=== PATIENT | male | born 1980 | race Caucasian/White ===

== ENCOUNTER 2018-08-14 21:39 | Inpatient (IN) | payer MEDICARE ==
[~2018-08-14] VITALS: Ht 188 cm; Wt 111.6 kg
[~2018-08-14 21:39] MED LIST: AMOX500 PO; ASPI325 PO; ASPI81CH PO; ASPI81EC PO; CARV25; CARV25 PO; CARV6.25 PO; CEPH500 PO; CODGUAEL PO; CYCL10 PO; DIGO.125 PO; DIPATR PO; FISH1000 PO; FURO40; FURO40 PO; HYDACE5 PO; LISI20; LISI20 PO; LISI5 PO; MULVITA PO; MULVITMIND PO; NAPR550 PO; Norco 5-325 Ta1 EACH PO; ONDA4 PO; OXYACE5T PO; PARO10 PO; PARO20 PO; PENVK500 PO; PRED10; PROM25 PO; RXHYDACE PO; RXNAPNA550 PO; RXOXYACE PO; RXPENVK250 PO; Robaxin500 MG PO; SPIR25 PO; TOCO400 PO; TRIHYD5075 PO; WARF10 PO; WARF4 PO; WARF7.5 PO; ZOLP10 PO; ZOLP5 PO
[2018-08-14 22:32] LABS: Source, Urine Clean Catch
[2018-08-14 22:35] LABS: Bilirubin, Urine Neg (Neg); Blood, Urine 1+ (Neg); Glucose Qualitative, Urine Neg (Neg); Ketones, Urine Neg (Neg); Leukocyte Esterase, Urine 1+ (Neg); Nitrite, Urine Neg (Neg); Protein, Urine 1+ (Neg); Specific Gravity, Urine 1.015 (1.003-1.022); Urobilinogen, Urine 2+ (Normal); pH, Urine 6.5 (5.0-8.0)
[2018-08-14 22:41] LABS: Appearance, Urine Clear (Clear); Color, Urine Yellow (P-Yellow)
[2018-08-14 22:42] LABS: Bacteria Rare /hpf; Red Blood Cells, Urine 0-2 /hpf (0-2); Squamous Epithelial Cells Not Seen /hpf (Few); White Blood Cells, Urine 0-2 /hpf (0-5)
[2018-08-14 22:45] LABS: U Amphetamine Screen Not Detected; U Barbituate Screen Not Detected; U Benzodiazapine Screen Not Detected; U Buprenorphine Screen Not Detected; U Cannabinoids Screen DETECTED; U Cocaine Screen Not Detected; U Methadone Screen Not Detected; U Methamphetamine Screen Not Detected; U Opiates Screen Not Detected; U Oxycodone Screen Not Detected; U Phencyclidine Screen Not Detected; U Propoxyphene Screen Not Detected
[2018-08-14 22:50] LABS: BASOPHILS ABSOLUTE AUTO 0.05 K/mm3 (0.00-0.23); BASOPHILS PERCENT AUTO 0 % (0-2); EOSINOPHILS ABSOLUTE AUTO 0.12 K/mm3 (0.00-0.68); EOSINOPHILS PERCENT AUTO 1 % (0-6); Hematocrit 45.1 % (37.0-53.0); IMMATURE GRAN ABSOLUTE AUTO 0.06 K/mm3 (0.00-0.10); IMMATURE GRAN PERCENT AUTO 1 % (0-1); LYMPHOCYTES ABSOLUTE AUTO 3.72 K/mm3 (0.84-5.20); LYMPHOCYTES PERCENT AUTO 30 % (21-46); MONOCYTES ABSOLUTE AUTO 1.11 K/mm3 (0.16-1.47); MONOCYTES PERCENT AUTO 9 % (4-13); Mean Corpuscular HGB 31.9 pg (26.0-34.0); Mean Corpuscular HGB Conc 33.3 g/dL (31.5-36.5); Mean Corpuscular Volume 96 fL (80-100); Mean Platelet Volume 11.5 fL (9.1-12.4); NEUTROPHILS ABSOLUTE AUTO 7.26 K/mm3 (1.96-9.15); NEUTROPHILS PERCENT AUTO 59 % (41-73); Platelet Count 166 K/mm3 (150-400); RDW Coefficient Variation 13.4 % (11.7-14.2); White Blood Cell Count 12.32 K/mm3 (4.00-11.30)
[2018-08-14 23:11] LABS: Alanine Aminotransfer (ALT/SGP 37 U/L (12-78); Albumin, Blood 3.5 g/dL (3.4-5.0); Alk Phos 51 U/L (50-136); Anion Gap 9 mmol/L (6-16); Aspartate Aminotrans (AST/SGOT 23 U/L (12-37); Bilirubin, Total 0.2 mg/dL (0.1-1.0); Blood Urea Nitrogen 20 mg/dL (8-24); CO2, Blood 24 mmol/L (21-32); Calcium, Blood 8.2 mg/dL (8.5-10.1); Chloride, Blood 109 mmol/L (98-108); Globulin, Blood 3.4 g/dL (2.2-4.0); Glomerular Filtration Rate >60 (60-); Glucose, Blood 86 mg/dL (70-99); Potassium, Blood 4.3 mmol/L (3.5-5.5); Salicylate 3.3 mg/dL (2.8-20.0); Sodium, Blood 142 mmol/L (136-145); Total Protein, Blood 6.9 g/dL (6.4-8.2)
[2018-08-14 23:19] LABS: Acetaminophen, Random <2.0 ug/mL (10.0-30.0); Ethanol (Alcohol), Blood, Med <3 mg/dL
[2018-08-15 03:00] LABS: C-REACTIVE PROTEIN, EXT RANGE 0.434 mg/dL (0.000-0.300)
[2018-08-15 05:49] LABS: Hematocrit 41.5 % (37.0-53.0); Hemoglobin 13.8 g/dL (13.5-17.5); Mean Corpuscular HGB 31.4 pg (26.0-34.0); Mean Corpuscular HGB Conc 33.3 g/dL (31.5-36.5); Mean Corpuscular Volume 94 fL (80-100); Mean Platelet Volume 11.4 fL (9.1-12.4); Platelet Count 141 K/mm3 (150-400); RDW Coefficient Variation 13.1 % (11.7-14.2); RDW Standard Deviation 45.7 fL (35.1-46.3); White Blood Cell Count 6.88 K/mm3 (4.00-11.30)
[2018-08-15 06:13] LABS: Alanine Aminotransfer (ALT/SGP 32 U/L (12-78); Albumin, Blood 3.3 g/dL (3.4-5.0); Albumin/Globulin Ratio 1.1 (0.8-1.8); Alk Phos 46 U/L (50-136); Anion Gap 5 mmol/L (6-16); Aspartate Aminotrans (AST/SGOT 17 U/L (12-37); Bilirubin, Total 0.4 mg/dL (0.1-1.0); Blood Urea Nitrogen 19 mg/dL (8-24); Bun/Creatinine Ratio 21.7 (12.0-20.0); CO2, Blood 28 mmol/L (21-32); Calcium, Blood 8.1 mg/dL (8.5-10.1); Chloride, Blood 109 mmol/L (98-108); Creatinine, Blood 0.87 mg/dL (0.60-1.20); Globulin, Blood 3.1 g/dL (2.2-4.0); Glomerular Filtration Rate >60 (60-); Glucose, Blood 87 mg/dL (70-99); Potassium, Blood 4.5 mmol/L (3.5-5.5); Sodium, Blood 142 mmol/L (136-145); Total Protein, Blood 6.4 g/dL (6.4-8.2)
[2018-08-15] MEDS ORDERED: KETO10 PO (11:38)
== END 2018-08-15 12:20 | disposition home or self-care (01) | DRG 556 ==
LOC: ER 21:39 → SURS 21:40 → ER 21:40 → SURS 08-15 02:23
PROVIDERS: Emergency Medicine; Internal Medicine
DX: M25.552 Pain in left hip (principal); I69.351 Hemiplegia and hemiparesis following cerebral infarction affecting right dominant side; I42.9 Cardiomyopathy, unspecified; M54.5 Low back pain; I69.319 Unspecified symptoms and signs involving cognitive functions following cerebral infarction; F17.210 Nicotine dependence, cigarettes, uncomplicated; E66.9 Obesity, unspecified; I48.91 Unspecified atrial fibrillation; Z86.79 Personal history of other diseases of the circulatory system; Z95.810 Presence of automatic (implantable) cardiac defibrillator; Z79.82 Long term (current) use of aspirin; Z79.899 Other long term (current) drug therapy; Z68.32 Body mass index [BMI] 32.0-32.9, adult
CPT/HCPCS: 36415; 70450; 72100; 73502; 80053; 81001; 82550; 84145; 84443; 85025; 85027; 85651; 86140; 87086; 96374; 96375; 99285-25; G0480; J1100; J1200; J1650; J1885; J2060; J3010; J3360

== ENCOUNTER 2020-09-15 17:33 | Emergency (ER) | payer MEDICARE ==
[~2020-09-15] VITALS: Ht 188 cm; Wt 108.9 kg
[~2020-09-15 17:33] MED LIST changes: +KETO10 PO
== END 2020-09-15 20:05 | disposition home or self-care (01) ==
LOC: ER 17:33
DX: S93.401A Sprain of unspecified ligament of right ankle, initial encounter (principal); I50.9 Heart failure, unspecified; I69.359 Hemiplegia and hemiparesis following cerebral infarction affecting unspecified side; F17.210 Nicotine dependence, cigarettes, uncomplicated; Z79.82 Long term (current) use of aspirin; Z79.899 Other long term (current) drug therapy; V13.4XXA Pedal cycle driver injured in collision with car, pick-up truck or van in traffic accident, initial encounter; Y92.410 Unspecified street and highway as the place of occurrence of the external cause
CPT/HCPCS: 29515; 73610; 99283-25

== ENCOUNTER 2023-07-28 07:31 | Emergency (ER) | payer MEDICARE, OTHER ==
[~2023-07-28] VITALS: Ht 188 cm; Wt 117.9 kg
[2023-07-28] MEDS ORDERED: Neurontin 300300 MG PO ×2 (13:29→13:36)
[2023-07-28] MEDS ORDERED: IBUP800 PO (13:29)
[2023-07-28 13:46] VITALS: BP 116/81
== END 2023-07-28 14:07 | disposition home or self-care (01) ==
LOC: ER 07:31
DX: M54.32 Sciatica, left side (principal); I50.9 Heart failure, unspecified; F17.210 Nicotine dependence, cigarettes, uncomplicated; Z79.899 Other long term (current) drug therapy; Z79.82 Long term (current) use of aspirin
CPT/HCPCS: 96374; 99284-25; A9270; J1885

== ENCOUNTER 2023-07-28 14:15 | Emergency (ER) | payer MEDICARE, OTHER ==
[~2023-07-28] VITALS: Ht 188 cm; Wt 122.5 kg
[~2023-07-28 14:15] MED LIST changes: +IBUP800 PO; +Neurontin 300300 MG PO
[2023-07-28 19:15] VITALS: BP 133/78
== END 2023-07-28 19:16 | disposition home or self-care (01) ==
LOC: ER 14:15
DX: M54.42 Lumbago with sciatica, left side (principal); G89.29 Other chronic pain; I50.9 Heart failure, unspecified; I69.351 Hemiplegia and hemiparesis following cerebral infarction affecting right dominant side; F17.210 Nicotine dependence, cigarettes, uncomplicated; Z79.82 Long term (current) use of aspirin; Z79.899 Other long term (current) drug therapy
CPT/HCPCS: 96372; A9270; J1885